=== PATIENT | male | born 1975 | race Caucasian/White ===

== ENCOUNTER 2017-09-09 14:28 | Inpatient (IN) | payer MEDICAID, OTHER ==
[~2017-09-09] VITALS: Ht 172.7 cm; Wt 87.1 kg
[~2017-09-09 14:28] MED LIST: SERT50TA12 PO
[2017-09-09] MEDS ORDERED: OXYC10 PO (14:44)
[2017-09-09 15:18] LABS: ANION GAP 12 mmol/L (8-16); BASOPHILS % (AUTO) 0.7 % (0.0-2.0); CALCIUM, TOTAL 9.6 mg/dL (8.8-10.5); CARBON DIOXIDE 27 mmol/L (22-29); CHLORIDE 101 mmol/L (98-107); CREATININE 0.91 mg/dL (0.60-1.30); EOSINOPHILS % (AUTO) 0.5 % (1.0-6.0); GLOMERULAR FILTR. RATE CALC > 60 mL/min (>60); GLUCOSE,RANDOM 108 mg/dL (70-110); HEMATOCRIT 42.4 % (41-53); HEMOGLOBIN 14.6 g/dL (13.5-17.5); LYMPHOCYTES # (AUTO) 1.5 K/uL (1.0-4.8); LYMPHOCYTES % (AUTO) 20.1 % (22.0-44.0); MEAN CORPUSCULAR HEMOGLOBIN 30.6 pg (26.0-34.0); MEAN CORPUSCULAR HGB CONC 34.5 G/dL (31.0-37.0); MEAN CORPUSCULAR VOLUME 89 fL (80-100); MONOCYTES # (AUTO) 0.5 K/uL (0.1-1.0); MONOCYTES % (AUTO) 7.1 % (2.0-9.0); NEUTROPHILS # (AUTO) 5.2 K/uL (1.8-7.7); NEUTROPHILS % (AUTO) 71.6 % (40.0-70.0); PLATELET COUNT (AUTO) 285 K/uL (150-450); RED BLOOD CELL COUNT(AUTO) 4.79 MIL/uL (4.50-5.90); SODIUM SERUM 140 mmol/L (136-145); UREA NITROGEN, BLOOD 10 mg/dL (7-18)
[2017-09-09 15:23] LABS: ALANINE AMINOTRANSFERASE 59 U/L (12-78); ALBUMIN 4.2 g/dL (3.4-5.0); ALKALINE PHOSPHATASE 93 U/L (46-116); ASPARTATE AMINOTRANSFERASE 31 U/L (15-37); BILIRUBIN,TOTAL 0.4 mg/dL (0.1-1.0); TOTAL PROTEIN, SERUM 8.5 g/dL (6.4-8.2)
[2017-09-09 15:41] LABS: AMPHET/METH SCREEN,URINE NEGATIVE (NEGATIVE); BARBITURATE SCREEN, URINE NEGATIVE (NEGATIVE); BENZODIAZEPINES SCREEN,URINE NEGATIVE (NEGATIVE); CANNABINOID SCREEN,URINE NEGATIVE (NEGATIVE); COCAINE SCREEN,URINE NEGATIVE (NEGATIVE); METHADONE SCREEN, URINE NEGATIVE (NEGATIVE); OPIATE SCREEN,URINE POSITIVE (NEGATIVE); PHENCYCLIDINE SCREEN,URINE NEGATIVE (NEGATIVE)
[2017-09-09] MEDS ORDERED: LOPERAMIDE HCL 2 MG CAPSULE PO PRN (16:00)
[2017-09-09] MEDS ORDERED: ZOLPIDEM TARTRATE 10 MG TABLET PO PRN (16:00)
[2017-09-09] MEDS ORDERED: PROMETHAZINE HCL 25 MG TABLET PO PRN (16:00)
[2017-09-09] MEDS ORDERED: MAGNESIUM HYDROXIDE SUSPENSION 30 ML UDCUP PO PRN (16:00)
[2017-09-09] MEDS ORDERED: TUBERCULIN, PURIFIED PROTEIN DERIVATIVE 5 TU/0.1 ML SYG ID ONE (16:00)
[2017-09-09] MEDS ORDERED: GuaiFENesin/D-METHORPHAN [SUGAR-FREE] 200-20MG/10 ML SYRUP UDCUP PO PRN (16:00)
[2017-09-09] MEDS ORDERED: GABAPENTIN 300 MG CAPSULE PO PRN (16:00)
[2017-09-09] MEDS ORDERED: QUEtiapine FUMARATE 100 MG TABLET PO PRN (16:00)
[2017-09-09] MEDS ORDERED: HydrOXYzine PAMOATE 50 MG CAPSULE PO PRN (16:00)
[2017-09-09] MEDS ORDERED: MAG HYDROX/AL HYDROX/SIMETH ES 30 ML SUSPENSION UDCUP PO PRN (16:00)
[2017-09-09] MEDS ORDERED: ACETAMINOPHEN 500 MG TABLET PO ONE (16:45)
[2017-09-09 18:30] VITALS: BP 110/80
[2017-09-09] MEDS: THIAMINE HCL 100 MG TABLET PO SCH (19:10)
[2017-09-09] MEDS: GABAPENTIN 100 MG CAPSULE PO SCH (19:11)
[2017-09-09] MEDS ORDERED: OxyCODONE HCL 5 MG IR TABLET PO SCH ×2 (19:45)
[2017-09-09 20:19] LABS: APPEARANCE,URINE CLEAR (CLEAR); BILIRUBIN,URINE NEGATIVE (NEGATIVE); GLUCOSE, URINE (UA) NEGATIVE (NEGATIVE); KETONES,URINE NEGATIVE (NEGATIVE); LEUKOCYTE ESTERASE ,URINE LARGE (NEGATIVE); NITRATE,URINE NEGATIVE (NEGATIVE); OCCULT BLOOD,URINE TRACE (NEGATIVE); PROTEIN,URINE NEGATIVE (NEGATIVE); UROBILINOGEN,URINE 0.2 mg/dL (<=1.0)
[2017-09-09 20:45] LABS: AMORPHOUS SEDIMENT,UR Few /LPF (None Seen); BACTERIA,URINE Few /HPF (None Seen); RBC,URINE 0-2 /HPF (0-2); SQUAMOUS EPITHELIAL CELL,UR Few /LPF (None Seen)
[2017-09-09] MEDS: OxyCODONE HCL 10 MG ER TABLET PO SCH (22:00)
[2017-09-10 00:01] VITALS: BP 105/67
[2017-09-10] MEDS: OxyCODONE HCL 5 MG IR TABLET PO SCH ×4 (00:04→18:42)
[2017-09-10 06:25] LABS: EOSINOPHILS % (AUTO) 2.4 % (1.0-6.0); HEMATOCRIT 39.5 % (41-53); HEMOGLOBIN 13.6 g/dL (13.5-17.5); LYMPHOCYTES # (AUTO) 2.5 K/uL (1.0-4.8); LYMPHOCYTES % (AUTO) 39.3 % (22.0-44.0); MEAN CORPUSCULAR HEMOGLOBIN 30.6 pg (26.0-34.0); MEAN CORPUSCULAR HGB CONC 34.5 G/dL (31.0-37.0); MEAN CORPUSCULAR VOLUME 89 fL (80-100); MONOCYTES # (AUTO) 0.6 K/uL (0.1-1.0); MONOCYTES % (AUTO) 8.9 % (2.0-9.0); NEUTROPHILS # (AUTO) 3.1 K/uL (1.8-7.7); NEUTROPHILS % (AUTO) 48.4 % (40.0-70.0); PLATELET COUNT (AUTO) 260 K/uL (150-450); RED BLOOD CELL COUNT(AUTO) 4.47 MIL/uL (4.50-5.90); RED CELL DISTRIBUTION WIDTH 13.1 % (11.5-14.5)
[2017-09-10 07:19] LABS: ALANINE AMINOTRANSFERASE 53 U/L (12-78); ALBUMIN 3.6 g/dL (3.4-5.0); ALKALINE PHOSPHATASE 82 U/L (46-116); ANION GAP 12 mmol/L (8-16); ASPARTATE AMINOTRANSFERASE 24 U/L (15-37); BILIRUBIN,TOTAL 0.5 mg/dL (0.1-1.0); CALCIUM, TOTAL 9.1 mg/dL (8.8-10.5); CARBON DIOXIDE 25 mmol/L (22-29); CHLORIDE 102 mmol/L (98-107); CHOL/HDL RATIO 2.7 (4.2-7.3); CHOLESTEROL 125 mg/dL (131-200); CREATININE 0.86 mg/dL (0.60-1.30); FREE T4 (FREE THYROXINE) 0.82 ng/dL (0.76-1.46); GLOMERULAR FILTR. RATE CALC > 60 mL/min (>60); GLUCOSE,RANDOM 109 mg/dL (70-110); HDL CHOLESTEROL 46 mg/dL (40-60); LDL CHOL (CALC.) 55 mg/dL (0-130); POTASSIUM 3.8 mmol/L (3.5-5.1); SODIUM SERUM 139 mmol/L (136-145); THYROID STIMULATING HORMONE 4.99 uIU/mL (0.36-3.74); TOTAL PROTEIN, SERUM 7.6 g/dL (6.4-8.2); TRIGLYCERIDES 119 mg/dL (15-150); UREA NITROGEN, BLOOD 13 mg/dL (7-18)
[2017-09-10] MEDS: MULTIVITAMINS WITH MINERALS, THERAPEUTIC TABLET PO SCH (09:01)
[2017-09-10] MEDS: THIAMINE HCL 100 MG TABLET PO SCH ×2 (09:01→16:15)
[2017-09-10] MEDS: GABAPENTIN 100 MG CAPSULE PO SCH ×3 (09:01→16:15)
[2017-09-10] MEDS: DULoxetine HCL 20 MG CAPSULE PO SCH (09:01)
[2017-09-10] MEDS: NITROFURANTOIN/NITROFURAN MAC 100 MG CAPSULE [MACROBID] PO SCH ×2 (09:02→16:15)
[2017-09-10] MEDS: FOLIC ACID 1 MG TABLET PO SCH (09:02)
[2017-09-10] MEDS: OxyCODONE HCL 10 MG ER TABLET PO SCH ×2 (09:06→21:19)
[2017-09-10 14:10] LABS: HEMOGLOBIN A1C 6.2 % (4.5-6.2)
[2017-09-10 14:56] VITALS: BP 132/86
[2017-09-10 18:24] VITALS: BP 115/68
[2017-09-11] MEDS: OxyCODONE HCL 5 MG IR TABLET PO SCH ×5 (00:14→23:42)
[2017-09-11 00:15] VITALS: BP 121/61
[2017-09-11 08:05] VITALS: BP 123/77
[2017-09-11] MEDS: MULTIVITAMINS WITH MINERALS, THERAPEUTIC TABLET PO SCH (08:50)
[2017-09-11] MEDS: THIAMINE HCL 100 MG TABLET PO SCH ×2 (08:51→16:03)
[2017-09-11] MEDS: FOLIC ACID 1 MG TABLET PO SCH (08:51)
[2017-09-11] MEDS: NITROFURANTOIN/NITROFURAN MAC 100 MG CAPSULE [MACROBID] PO SCH ×2 (08:51→16:03)
[2017-09-11] MEDS: DULoxetine HCL 20 MG CAPSULE PO SCH (08:51)
[2017-09-11] MEDS: OxyCODONE HCL 10 MG ER TABLET PO SCH ×2 (08:54→22:05)
[2017-09-11] MEDS ORDERED: GABAPENTIN 300 MG CAPSULE PO SCH (09:00)
[2017-09-11] MEDS ORDERED: GABA-531 PO (13:08)
[2017-09-11] MEDS ORDERED: DULO20CA30 PO (13:08)
[2017-09-11] MEDS ORDERED: ACAM333T7 PO (13:08)
[2017-09-11] MEDS: GABAPENTIN 400 MG CAPSULE PO SCH (16:03)
[2017-09-11 18:38] VITALS: BP 132/88
[2017-09-11] MEDS: ACAMPROSATE CALCIUM 333 MG DR TABLET PO SCH (21:14)
[2017-09-11 22:09] VITALS: BP 128/68
[2017-09-12] MEDS: OxyCODONE HCL 5 MG IR TABLET PO SCH (06:04)
[2017-09-12] MEDS: ACAMPROSATE CALCIUM 333 MG DR TABLET PO SCH (08:52)
[2017-09-12] MEDS: MULTIVITAMINS WITH MINERALS, THERAPEUTIC TABLET PO SCH (08:53)
[2017-09-12] MEDS: DULoxetine HCL 20 MG CAPSULE PO SCH (08:53)
[2017-09-12] MEDS: GABAPENTIN 400 MG CAPSULE PO SCH (08:53)
[2017-09-12] MEDS: NITROFURANTOIN/NITROFURAN MAC 100 MG CAPSULE [MACROBID] PO SCH (08:53)
[2017-09-12] MEDS: FOLIC ACID 1 MG TABLET PO SCH (08:53)
[2017-09-12] MEDS: OxyCODONE HCL 10 MG ER TABLET PO SCH (08:53)
[2017-09-12] MEDS: THIAMINE HCL 100 MG TABLET PO SCH (08:54)
[2017-09-12 09:23] VITALS: BP 120/75
[2017-09-12] MEDS ORDERED: ACAM333T7 PO (09:44)
[2017-09-12] MEDS ORDERED: DULO20CA30 PO (09:44)
[2017-09-12] MEDS ORDERED: GABA-533 PO (09:45)
[2017-09-12] MEDS ORDERED: MACR100 PO (09:45)
== END 2017-09-12 12:30 | disposition home or self-care (01) | DRG 751 ==
LOC: EMS 14:29 → 3EI 17:47
PROVIDERS: ADMIT Psychiatry & Neurology Psychiatry; ATTEND Psychiatry & Neurology Psychiatry
DX: F33.9 Major depressive disorder, recurrent, unspecified (principal); R45.851 Suicidal ideations; Z91.19 Patient's noncompliance with other medical treatment and regimen; F41.9 Anxiety disorder, unspecified; G89.4 Chronic pain syndrome; F10.21 Alcohol dependence, in remission; Q05.9 Spina bifida, unspecified; Z88.5 Allergy status to narcotic agent; Z79.899 Other long term (current) drug therapy
CPT/HCPCS: 83036; 84439; 84443; 86592; 87086; 87147; 93005; 99285; G0480